=== PATIENT | female | born 1955 | race Caucasian/White ===

== ENCOUNTER 2018-05-18 08:39 | Inpatient (IN) | payer OTHER ==
[~2018-05-18] VITALS: Ht 157.5 cm; Wt 68.4 kg
[2018-05-18 08:40] VITALS: BP 101/33
--- NOTE | 2018-05-18 09:07 | NUR ---
DIALYSIS NURSE AT THIS TIME, REPORTS THAT THEY NOTED DARK RED BLOOD FROM MOUTH AND THEN PT BEGAN HAVING VOMITING DARK SUBSTANCE, WITH CHUNKS. NURSE REPORTS X1 EPISODE. HEPRAIN BOLUS 1999 TODAY. WEIGHT TODAY FOR DIALYSIS 59.6KG GOT ALL BUT 24 OF DIALYSIS
[2018-05-18 09:33] LABS: ABSOLUTE NEUTROPHILS 6.5 thou/uL (1.4-8.2); BASOPHILS 0.5 % (0.0-2.0); HEMATOCRIT 37.6 % (37.0-47.0); HEMOGLOBIN 12.3 gm/dL (12.0-15.0); LYMPHOCYTES 7.4 % (24.0-44.0); MCH 30.6 pg (26.0-34.0); MCHC 32.8 g/dL (28.0-37.0); MCV 93.2 fL (80.0-100.0); MONOCYTES 6.2 % (1.0-8.0); PLATELET COUNT 245 thou/uL (150-400); POLYS 83.9 % (36.0-66.0); RBC 4.03 mil/uL (4.20-5.00); RDW 15.6 % (10.5-14.5); WBC 7.7 thou/uL (4.0-11.0)
--- NOTE | 2018-05-18 09:40 | EKG ---
[facility] [place] [address] ELECTROCARDIOGRAM REPORT Name: JOSEE VAZQUEZ Room #: GAMAL Thakur#: [id number] Admission: 05/18/18 Attend Phys: Discharge: Date of : 51 Report #: [id number] THIS REPORT FOR: //name// [facility] ED Test Date: 2018-05-18 Test Time: 09:29:24 Pat Name: JOSEE VAZQUEZ Department: Room: Gender: F Soccer Referee: SILAS : 1955 Requested By: Robinson Hayes Order Number: [id number] MD: Danie Faulkner Measurements Intervals [place] Rate: 79 P: 38 DC: 166 QRS: 5 QRSD: 103 T: 184 QT: 379 QTc: 435 Interpretive Statements Sinus rhythm Borderline left atrial enlargement Early transition LVH with secondary repol abnrm No previous ECG available for comparison Electronically Signed On 05-18-2018 9:40:17 SECURITY PUBLIC SAFETY OFFICER by Danie Faulkner [email or web address] <ELECTRONICALLY SIGNED> By: Danie Faulkner MD 05/18/18 0940 0929 09 Danie Faulkner MD /BINU
[2018-05-18 09:42] LABS: ANION GAP 5 mmol/L (7-16); BUN 25 mg/dL (7-18); CALCIUM 10.4 mg/dL (8.5-10.1); CHLORIDE 96 mmol/L (98-107); CO2 29 mmol/L (21-32); CREATININE 2.3 mg/dL (0.6-1.0); GLUCOSE 208 mg/dL (74-106); SODIUM 130 mmol/L (136-145)
[2018-05-18 09:44] LABS: APTT 28.1 Seconds (24.5-32.8); PROTIME 10.9 Seconds (9.3-11.4)
[2018-05-18 09:47] LABS: POTASSIUM 2.9 mmol/L (3.5-5.1)
[2018-05-18 09:51] LABS: ALBUMIN 2.7 g/dL (3.4-5.0); LIPASE 686 U/L (73-393); SGOT 14 U/L (15-37); SGPT 8 U/L (30-65); TOTAL BILIRUBIN 0.6 mg/dL (<0.1-1.0); TOTAL PROTEIN 8.6 g/dL (6.4-8.2); TROPONIN-I <0.06 ng/mL (<0.06)
[2018-05-18] MEDS ORDERED: CEREFOLIN NAC1 EAC1 PO (10:03)
[2018-05-18] MEDS ORDERED: CATAPRES0.2 M1 PO (10:04)
[2018-05-18] MEDS ORDERED: MARINOL 2.5 MG2.5 M1 PO (10:05)
[2018-05-18] MEDS ORDERED: NEURONTIN 300300 M1 PO (10:06)
[2018-05-18] MEDS ORDERED: PEPCID20 MG PO (10:06)
[2018-05-18] MEDS ORDERED: MELATONIN3 MG PO (10:07)
[2018-05-18] MEDS ORDERED: ISOSORBIDE MONO20 MG PO (10:07)
[2018-05-18] MEDS ORDERED: HUMALOG100 UNIT/1 SUBQ (10:07)
[2018-05-18] MEDS ORDERED: VITAMINC500 PO (10:09)
[2018-05-18] MEDS ORDERED: ASPIRIN81 M2 PO (10:09)
[2018-05-18] MEDS ORDERED: TYLENOL325 MG PO (10:09)
[2018-05-18] MEDS ORDERED: RENVELA800 MG PO (10:10)
[2018-05-18] MEDS ORDERED: ZINC SULFATE 2220 MG PO (10:10)
[2018-05-18 10:45] VITALS: BP 176/64
[2018-05-18 10:47] VITALS: BP 176/64
[2018-05-18 10:48] LABS: URINE BILIRUBIN NEGATIVE (Negative); URINE BLOOD 3+ (Negative); URINE CLARITY CLOUDY; URINE COLOR BROWN; URINE GLUCOSE-RANDOM* NEGATIVE (Negative); URINE KETONES NEGATIVE (Negative); URINE LEUKOCYTES-REFLEX 2+ (Negative); URINE NITRITE-REFLEX NEGATIVE (Negative); URINE PROTEIN (DIPSTICK) 2+ (Negative); URINE SPECIFIC GRAVITY 1.025 (1.005-1.035); URINE UROBILINOGEN 0.2 E.U./dl (0.2-1.0)
[2018-05-18 10:56] LABS: CASTS None Seen /LPF (None Seen); SQUAMOUS 0-3 Few /LPF (0-3)
[2018-05-18 10:57] LABS: MUCUS 0-3 Light strn/LPF (None Seen)
[2018-05-18 10:58] LABS: BACTERIA-REFLEX >30 Many /HPF (None Seen); CRYSTALS None Seen /LPF (None Seen); URINE RBC 0-2 Rare /HPF (0-2); URINE WBC-REFLEX >25 Many /HPF (0-5)
[2018-05-18 13:45] VITALS: BP 153/84
--- NOTE | 2018-05-18 13:46 | NUR ---
[age] YEAR OLD FEMALE ADMITTED TO CCU ROOM 201. PT WAS BROUGHT INTO THE ER PER MAST FROM DIALYSIS DUE TO HAVING COFFE GROUND EMESIS DURING THE LAST TWENTY FIVE MIN. OF TREATMENT. PT THEN TAKEN TO GI FOR PROCEDURE(SEE CHART) PT ALERT TO SELF ONLY VERY CONFUSED, AND NOT AWARE OF ANY MEDICAL HX. VSS, 98%RA, SR ON TELE PACE MAKER RIGHT UPPER CHEST NOTED. PROTONIX INFUSING PER ORDER. WOUNDS TO BUTOCK AND LEFT HEEL DRESSED AND PICTURES TAKEN. PT DENIES PAIN/N/V/SOA. PT TOLERATES CLEAR LIQUIDS WELL. WILL CONTINUE TO MONITOR.
[2018-05-18 14:07] LABS: HEMATOCRIT 35.7 % (37.0-47.0); HEMOGLOBIN 11.8 gm/dL (12.0-15.0)
[2018-05-18] MEDS ORDERED: LIPITOR10 MG PO (15:08)
[2018-05-18] MEDS ORDERED: COREG6.25 MG PO (15:08)
[2018-05-18] MEDS ORDERED: B-COMPLEX PLUS1 EACH PO (15:08)
[2018-05-18] MEDS ORDERED: ARANESP100 MCG/0. SUBQ (15:08)
[2018-05-18] MEDS ORDERED: DIPHENHYDR50 MG/1 M1 IV (15:09)
[2018-05-18] MEDS ORDERED: SENSIPAR60 MG PO (15:10)
[2018-05-18] MEDS ORDERED: ZOLOFT50 M1 PO (15:10)
[2018-05-18] MEDS ORDERED: NITROGLYCERIN0.4 MG SUBLING (15:10)
[2018-05-18] MEDS ORDERED: SODIUM THI12.5 GM/50 IV (15:11)
[2018-05-18] MEDS ORDERED: TRAMADOL 50 MG50 MG PO (15:12)
[2018-05-18] MEDS ORDERED: ONDANSETRON HCL4 M2 PO (15:12)
[2018-05-18] MEDS ORDERED: ALBUMIN HUMAN IV (15:13)
[2018-05-18 16:20] VITALS: BP 160/82
[2018-05-18 20:30] VITALS: BP 161/77
[2018-05-18 22:01] LABS: HEMATOCRIT 31.6 % (37.0-47.0); HEMOGLOBIN 10.5 gm/dL (12.0-15.0)
[2018-05-19 00:07] VITALS: BP 132/68
[2018-05-19 04:07] LABS: CALCIUM 9.3 mg/dL (8.5-10.1); CREATININE 2.6 mg/dL (0.6-1.0)
[2018-05-19 04:13] LABS: ALBUMIN 2.1 g/dL (3.4-5.0); MAGNESIUM 1.6 mg/dL (1.8-2.4); TOTAL BILIRUBIN 0.6 mg/dL (<0.1-1.0); TOTAL PROTEIN 6.7 g/dL (6.4-8.2)
[2018-05-19 04:38] LABS: POTASSIUM 4.3 mmol/L (3.5-5.1)
[2018-05-19 04:40] LABS: HEMATOCRIT 30.1 % (37.0-47.0)
[2018-05-19 05:24] VITALS: BP 142/74
--- NOTE | 2018-05-19 05:41 | NUR ---
ASSUMED PT CARE AT 1900. VSS. PT WAS AWAKE AND ORIENTED TO SELF. PT TOLERATED PO PILLS WELL WITH THIN LIQUIDS. SHE SLEPT MOST OF THE NIGHT. SHE DID NOT NEED INSULIN COVERAGE DURING THIS SHIFT. PT IS WEAK, NO BM OR URINE OUTPUT NOTED DURING THIS SHIFT EITHER. Q2 TURNS COMPLETED. BARRIER CREAM ON BOTTOM. PT IS STABLE OTHERWISE, WILL CONTINUE TO MONITOR PER POC.
[2018-05-19 07:25] VITALS: BP 161/81
[2018-05-19 11:10] VITALS: BP 167/81
[2018-05-19 13:59] LABS: HEMATOCRIT 31.4 % (37.0-47.0); HEMOGLOBIN 10.4 gm/dL (12.0-15.0)
[2018-05-19 15:05] VITALS: BP 124/58
--- NOTE | 2018-05-19 18:02 | NUR ---
PT ORIENTED X1-2 AND PLEASANT. TOLERATING PO WELL WITH NO NAUSEA OR VOMITING. STOOD AT EDGE OF BED WITH PHYSICAL THERAPY. TURNED Q2H. WILL CONTINUE TO MONITOR PATIENT.
[2018-05-19 19:39] VITALS: BP 159/77
[2018-05-19 23:24] LABS: HEMATOCRIT 31.2 % (37.0-47.0); HEMOGLOBIN 10.4 gm/dL (12.0-15.0)
[2018-05-20 03:16] VITALS: BP 172/81
--- NOTE | 2018-05-20 05:27 | NUR ---
ASSUME CARE 1900. PT/VITALS STABLE. BP RUNS HIGH/ PT IS DIALYSIS PT . A/O TO PERSON AND PLACE. ANS QUESTIONS APPROPRIATELY. DENIES ANY PAIN. POOR TOLERANCE TO ACTIVITY BUT HELPS TURNING. CONTINUE TO MONITOR HH FOR GI BLEED. GI CONSULTED. PT IS A DIALYSIS PT. LARGE DIARRHEA NOTED X 2. STOOL IS BROWN AND LIQUID. NO BLOOD OR TARRINESS NOTED. WILL CONTINUE TO MONITRO AND FOLLOW WITH POC
[2018-05-20 05:52] LABS: HEMATOCRIT 30.5 % (37.0-47.0); HEMOGLOBIN 10.2 gm/dL (12.0-15.0); MCH 30.5 pg (26.0-34.0); MCHC 33.4 g/dL (28.0-37.0); MCV 91.2 fL (80.0-100.0); RBC 3.35 mil/uL (4.20-5.00); RDW 15.4 % (10.5-14.5); WBC 4.9 thou/uL (4.0-11.0)
[2018-05-20 06:07] LABS: CALCIUM 9.7 mg/dL (8.5-10.1); MAGNESIUM 1.6 mg/dL (1.8-2.4); POTASSIUM 4.3 mmol/L (3.5-5.1)
[2018-05-20 06:08] LABS: CREATININE 3.6 mg/dL (0.6-1.0)
[2018-05-20 07:15] VITALS: BP 166/79
[2018-05-20 11:05] VITALS: BP 153/93
[2018-05-20 15:10] VITALS: BP 161/67
--- NOTE | 2018-05-20 18:17 | NUR ---
ASSUMED CARE OF PT AT 0700. PT ALERT AND ORIENTED TO SELF, FOLLOWS COMMANDS. PT NOT OUT OF BED TODAY. PT ON [id number], AND MEPILEX HEART PLACED ON COCCYX FOR SKIN INTEGRITY. PT HAD NEGATIVE CDIFF RESULTS. PT HAD VITALS WITHIN NORMAL LIMITS EXCEPT BLOOD PRESSURE SLIGHTLY HIGH AND SCHEDULED BLOOD PRESSURE MEDS GIVEN. PT WAS SINUS RHYTHM ON TELEMETRY. IV FLUIDS DISCONTINUED BY DR. HARDING. WILL CONT WITH POC.
[2018-05-20 19:12] VITALS: BP 101/75
[2018-05-21 00:12] VITALS: BP 142/37
[2018-05-21 05:30] VITALS: BP 171/95
[2018-05-21 07:41] VITALS: BP 110/54
--- NOTE | 2018-05-21 08:45 | NUR ---
PT REMAIND ORIENTED TO NAME, AND FOLLOWING SIMPLE COMMANDS, VSS, HR REMAINS ELEVATED PRN CLONIDINE GIVEN AT HS, TURNING Q 2HRS AND PRN, NO C/O PAIN, PLANNING ON DIALYSIS IN AM, WILL CON'T TO MONITOR PER PPOC.
--- NOTE | 2018-05-21 11:04 | NUR ---
WOUND CONSULT; ASSESSMENT OF THE LEFT HEEL IS AN UNSTAGEABLE PRESSURE WOUND, AN OLD RESOLVING HEMATOMA, DRY. THE SACRUM/ BILATERAL BUTTOCKS HAS ESCORIATIONS AND ABRASIONS COSISTAT WITH INC RELATED DERMATITIS. RECOMMENDATIONS; BARRIER CREAM TO BUTTOCKS/ SACRAUM, AND A VERA PUMP. DISCUSSED WITH [place]
[2018-05-21 12:47] VITALS: BP 159/49
--- NOTE | 2018-05-21 13:32 | NUR ---
spoke with patient she resides at [facility]. She dializes at [facility]. Spoke with son plan return once stable. patient to dialize later today. [place] supply planner faxing updated information to [facility]. Sp with son who plans return to [place] at tx.
--- NOTE | 2018-05-21 13:45 | NUR ---
FAXED CLINICAL UPDATE TO [facility]ST[facility] DENISE MS WITH MATTHEW IN ADM. THAT UPDATE FAXED. DCP TO FOLLOW.
[2018-05-21 15:43] VITALS: BP 161/78
--- NOTE | 2018-05-21 19:05 | NUR ---
ASSUMED PATIENT CARE THIS AM. PATIENT LYING IN BED, ALERT TO PERSON. TOLERATING DIET, TRAY SET UP NEEDED. PATIENT STOOD WITH PHYSICAL THERAPY FOR A FEW MINUTES WHILE THIS RN CHANGED PATIENTS BEDDING. BARRIER CREAM APPLIED WITH TURNS. PATIENT WITH DIALYSIS THIS AFTERNOON. NO COMPLAINTS STATED.
[2018-05-21 21:02] VITALS: BP 189/91
[2018-05-22 00:48] VITALS: BP 185/81
--- NOTE | 2018-05-22 02:46 | NUR ---
ASSESSMENT DOCUMENTED.PT BEEN RESTING IN NO ACUTE DISTRESS.HAD DIALYSIS AND WELL TOLERATED.BLOOD PRESSURE ELEVATED,SCHEDULED AND PRN HYPERTENSIVE MEDS GIVEN.PT DENIES ANY DISCOMFORT.FISTULA INTACT,COVERED W/DRESSING.POC IS TO DSICHARGE TODAY TO [facility].WILL CONT TO MONITOR PER POC.
[2018-05-22 03:28] LABS: HEMATOCRIT 32.6 % (37.0-47.0); HEMOGLOBIN 10.6 gm/dL (12.0-15.0); MCHC 32.5 g/dL (28.0-37.0); MCV 92.1 fL (80.0-100.0); RBC 3.54 mil/uL (4.20-5.00); RDW 15.5 % (10.5-14.5); WBC 5.8 thou/uL (4.0-11.0)
[2018-05-22 03:38] LABS: CALCIUM 9.4 mg/dL (8.5-10.1); CREATININE 3.3 mg/dL (0.6-1.0); POTASSIUM 3.9 mmol/L (3.5-5.1)
[2018-05-22 04:30] VITALS: BP 190/81
[2018-05-22 08:01] VITALS: BP 133/42
[2018-05-22 11:09] VITALS: BP 110/55
--- NOTE | 2018-05-22 11:13 | PATH ---
[facility] [place] [address] PATHOLOGY RPT PROCEDURE Name: LYNNETTE VAZQUEZ Room #: 201-P ADM IN M.R.#: [id number] Admission: 05/18/18 Date of : 51 Discharge: Report #: [id number] Path Case #: [id number] [facility] Accession Number: [id number] . 01 Material submitted: . BX GASTRITIS R/O H.PYLORI . 01 Clinical history: . Pre-OP DX: Coffee-ground emesis Post-OP DX: Hiatal hernia, esophagitis, gastritis, please refer to requisition for additional information . 02 Diagnosis: Gastric mucosa, gastritis rule out H. pylori, endoscopic biopsy: - Mild reactive gastropathy. - Negative for intestinal metaplasia or atrophy. - Negative for Helicobacter pylori (properly controlled immunohistochemical stain performed). (IUV:pit 05/21/2018) QTP/05/21/2018 . 02 Electronically signed: . Lindsay Cantu MD, Pathologist NPI- [id number] . 01 Gross description: . Received in formalin labeled "Lynnette Vazquez, BX gastritis, rule out H. pylori," are 5 segments of parks soft tissue measuring 0.9 x 0.8 x 0.2 cm in aggregate dimensions and ranging from 0.2 to 0.4 cm in maximum dimension. The specimen is submitted entirely in cassette A1. (TSD; 05/18/2018) TOB/TOB . 02 Pathologist provided ICD-10: K31.9 . 02 CPT . 983055, U96019 Specimen Comment: A courtesy copy of this report has been sent to Specimen Comment: [phone], , . Specimen Comment: Report sent to ,DR CHAN / DR ALARCON Specimen Comment: A duplicate report has been generated due to demographic updates. Performed at: [address] [facility], [place] [id number] MD Rojelio Hernadez MD Phone: [phone] [address] [address] PATHOLOGY RPT PROCEDURE Name: LYNNETTE VAZQUEZ Room #: 201-P ADM IN M.R.#: [id number] Admission: 05/18/18 Date of : 51 Discharge: Report #: [id number] Path Case #: [id number] Performed at: [address], [place], [place] [id number] MD Lindsay Cantu MD Phone: [phone]
--- NOTE | 2018-05-22 15:21 | NUR ---
ASSUMED PATIENT CARE THIS AM. PATIENT LYING IN BED, ALERT. ROOM AIR. PATIENT HAD ONE SMALL COFFEE GROUND EMESIS THIS AM, ABOUT 50-70ML. PROVIDERS AWARE. MEDICATION GIVEN TO PATIENT. NO COMPLAINTS OF N/V SINCE THIS AM. FALL RISK. BED ALARM IN PLACE. CALL LIGHT WITHIN REACH. PATIENT ABLE TO FEED SELF WITH TRAY SET UP. BED BATH GIVEN THIS AFTERNOON.
[2018-05-22 16:14] VITALS: BP 166/67
[2018-05-22 20:43] VITALS: BP 146/57
[2018-05-23 00:42] VITALS: BP 166/80
--- NOTE | 2018-05-23 03:34 | NUR ---
ASSESSMENT CHARTED.PATIENT FINALLY FELL ASLEEP AROUND 0200 AM. SCHEDULED FOR DIALYSIS AGAIN TODAY. PLAN OF CARE MAY BE GOING HOME TODAY AFTER DIALYSIS.
[2018-05-23 04:15] VITALS: BP 183/90
[2018-05-23 07:43] VITALS: BP 172/77
[2018-05-23 08:10] LABS: HEMATOCRIT 33.8 % (37.0-47.0); HEMOGLOBIN 11.1 gm/dL (12.0-15.0); MCH 30.2 pg (26.0-34.0); MCHC 32.7 g/dL (28.0-37.0); MCV 92.4 fL (80.0-100.0); RBC 3.65 mil/uL (4.20-5.00); RDW 15.8 % (10.5-14.5); WBC 4.9 thou/uL (4.0-11.0)
[2018-05-23 08:21] LABS: CALCIUM 10.1 mg/dL (8.5-10.1); POTASSIUM 4.6 mmol/L (3.5-5.1)
[2018-05-23 08:22] LABS: CREATININE 4.6 mg/dL (0.6-1.0)
[2018-05-23] MEDS ORDERED: KEFLEX500 M1 PO (10:02)
[2018-05-23] MEDS ORDERED: PROTONIX40 M1 PO (10:04)
[2018-05-23 11:17] VITALS: BP 141/67
[2018-05-23 14:50] VITALS: BP 177/88
--- NOTE | 2018-05-23 15:00 | NUR ---
PT. DISCHARGING TODAY TO [facility] FAXED DC ORDERS/SUMMARY TO FACILITY SPOKE WITH MATTHEW IN ADM. SHE RECEIVED ORDERS AND SET UP TRANSPORT VIA VAN FOR [phone]. NOTIFIED SON TRACY OF DISCHARGE AND TIME OF TRANSPORT LEFT [facility] WITH HER OTHER SON CELINA ALSO. UNIT NOTIFIED OF TIME AND CHART COPY PER US. RN TO CALL REPORT TO [phone].
--- NOTE | 2018-05-23 15:58 | NUR ---
arrangements made for dc to [facility] today for wc van at [phone]. Rn approached caset to say dialysis here arranged at 1830. [facility] cannot accept patient at 2000 at night. Cancelled dc.
--- NOTE | 2018-05-23 16:21 | NUR ---
ASSESSMENT CHARTED - MEDS PER JUN - NO CO'S OF PAIN OR NAUSEA - PATRICIA DIET AND FLUIDS. PT TO HAVE DIALYSIS THIS EVEINING ORDERED - PT DISCHARGE PLACED ON HOLD DUE TO LATE DIALYSIS. WOUND CARE COMPLETED - PHOTOS TRAKEN AND PLACED IN CHART, HEEL L CLEANED AND PAINTED WITH BETADINE AND AREA ON BOOTOM AND COCCYX CLEANED AND BARRIED APPLIED. PT HAS BEEN WATCHING TV FOR MOST OF THE DAY - NO CO'S AT THE PRESENT TIME.
[2018-05-23 20:30] VITALS: BP 138/45
--- NOTE | 2018-05-24 01:00 | NUR ---
ASSESSMENT DOCUMENTED.PT COMPLETED DIALYSIS,TOLERATED.VSS.DENIES ANY DISTRESS AT THIS TIME.NSR ON MONITOR.X3 DIARRHEA THIS SHIFT.NO C/O NAUSEA OR ABD DISCOMFORT.POC IS TO DISCHARGE IN THE MORNING.WILL CONT TO MONITOR PER POC.
[2018-05-24 04:52] VITALS: BP 182/82
[2018-05-24 07:30] VITALS: BP 152/62
--- NOTE | 2018-05-24 10:42 | NUR ---
PT. DID NOT DISCHARGE YESTERDAY DUE TO LATE DIALYSIS (1829) SO PT. IS DISCHARGING TODAY TO [facility]. MATTHEW IN ADM. AT [facility] SET UP TRANSPORTATION VIA [facility] VAN FOR [phone]. NOTIFIED SON (CELINA) OF DISCHARGE AND TIME OF TRANSPORT. UNIT NOTIFIED AND CHART COPY PER US. RN TO CALL REPORT TO [phone].
[2018-05-24 11:45] VITALS: BP 163/69
--- NOTE | 2018-05-24 16:57 | NUR ---
ASSESSMENT CHARTED - MEDS PER JUN - ACCUCHECKS COVERED PER SLINDING SCALE. SEEN BY PHYS THERAPY THIS AM. PATRICIA DIET AND FLUIDS. NO CO'S OF PAIN OR NAUSEA. PRAFO BOOTS INSTITU - HEEL DRESSING CHANGED - BARRIER APPLIED TO BOTTOM. PT BACK TO [facility] TODAY. -=- REPORT CALLED TO DAO TORRES TRANSFERED VIA CART- NO CO'S AT TIME OF D/C.
--- NOTE | 2018-05-25 09:18 | HC ---
[facility] [place] [place] [address] CONSULTATION Name: TAYLORJOSEE Room #: 201-P [facility] IN M.Teri.#: [id number] Admission: 05/18/18 Attend Phys: Bradley Clayton MD Discharge: 05/24/18 Date of : 51 Report #: [id number] THIS REPORT FOR: //name// CC: Mariana Merrybhavesh Bradley Clayton DATE OF SERVICE: 05/18/2018 ATTENDING PHYSICIAN: Dr. Clayton. REASON FOR CONSULTATION: End-stage renal disease. HISTORY OF PRESENT ILLNESS: A 63-year-old patient apparently a longstanding dialysis patient recently admitted at [facility], had some coffee-ground emesis at the end of her dialysis today. PAST MEDICAL HISTORY: She has end-stage renal disease. She is somewhat demented, extremely poor historian and I am not getting a lot of good history from her and there is essentially nothing in the charts. HOME MEDICATIONS: Reported medications include Catapres patch p.r.n. 0.2, Marinol 2.5 mg b.i.d., Pepcid 20 mg at bedtime, Neurontin 300 mg t.i.d., insulin, isosorbide mononitrate 20 mg b.i.d., ascorbic acid 500 mg daily, aspirin 81 mg daily, Renvela 800 mg t.i.d. with meals, zinc 50 mg daily. SOCIAL HISTORY: Denies cigarettes. REVIEW OF SYSTEMS: Difficult to take. She says she is feeling fine, not short winded. She is eating well, not having any abdominal pain. FAMILY HISTORY: Unknown. ALLERGIES: REPORTEDLY TO PENICILLIN. PHYSICAL EXAMINATION: GENERAL: This is a somewhat chronically ill patient, looking older than her stated age. SKIN: She has got lots of erythema with some breakdown and bandages in her back and sacral area. SKELETAL: Well-developed, well-nourished, no amputations. HEENT: Extraocular movements are full. Vision is intact. Hearing appears intact. Mucous membranes are dry. NECK: Veins are flat. CHEST: Clear to auscultation. HEART: Regular. ABDOMEN: There is an apparent pacemaker in the right upper chest. [facility] [address] [place] [address] CONSULTATION Name: JOSEE VAZQUEZ Room #: 201-P DIS IN M.R.#: [id number] Admission: 05/18/18 Attend Phys: Bradley Clayton MD Discharge: 05/24/18 Date of : 51 Report #: [id number] ABDOMEN: Soft, nontender. EXTREMITIES: Showing no edema. There are dressings and boots on both lower extremities. LABORATORY DATA: This is immediately post-dialysis, the potassium was 2.9, calcium 10.4. LFTs were okay. ASSESSMENT: 1. End-stage renal disease. We will follow closely for need for dialysis. She does have a left arm AV fistula, seems to be okay. 2. Coffee-ground emesis. 3. History of diabetes mellitus. 4. Back wounds. 5. Apparent cognitive debility. <ELECTRONICALLY SIGNED> By: Mina Okeefe MD 05/25/18 0918 1346 2353 Mina Okeefe MD /nt
--- NOTE | 2018-05-25 10:09 | P ---
[facility] [place] [address] [address] [place] [address] PROCEDURE REPORT Name: TAYLORJOSEE Room #: 201-P [facility] IN M.R.#: [id number] Admission: 05/18/18 Attend Phys: Bradley Clayton MD Discharge: 05/24/18 Date of : 51 Report #: [id number] THIS REPORT FOR: //name// CC: Mariana Clayton MD DATE OF SERVICE: 05/18/2018 PROCEDURE PERFORMED: Upper endoscopy with biopsies. HISTORY OF PRESENT ILLNESS: The patient is a 63-year-old female with a history of end-stage renal disease, on hemodialysis, who was on dialysis earlier this morning and had an episode of coffee-ground emesis. No previous history of GI bleed, per the patient. She is a fairly poor historian, however, and she is not oriented to time or place. She denies any abdominal pain. However, her hemoglobin is 12 range. There has been no history of melena reportedly. She denies any dysphagia. She has been taking NSAIDs. She was on Pepcid as well. Plan is for upper endoscopy for further evaluation. DESCRIPTION OF PROCEDURE: The procedure was performed as an emergent procedure. Unable to obtain consent from the patient due to her mental status and unable to obtain consent from any family members. Sedation was given using propofol per anesthesia. Next, using a standard Olympus upper endoscope, the scope was placed in the patient's mouth and advanced under direct vision through the esophagus, stomach and into the second portion of the duodenum. The upper and mid esophagus was normal in appearance. In the distal esophagus, grade B erosive esophagitis was noted. There was a small amount of old blood in this area, but no active bleeding. Upon entering the stomach old food and old fluid was noted, suggesting the possibility of gastroparesis. A medium-sized hiatal hernia with several ulcerations, clean white based, consistent with Dariusz ulcers, were noted. Again, no evidence of bleeding. Some old blood was noted within the stomach, however. There was a diffuse mild gastritis in the body and antrum. Biopsies were obtained to rule out H. pylori. The pylorus was normal and patent. The duodenal bulb, first and second portion, were all normal. The scope was then withdrawn and the procedure terminated. The patient tolerated the procedure well. IMPRESSION: 1. Grade B erosive esophagitis. 2. Dariusz ulcerations within hiatal hernia. 3. Food and fluid within the stomach, suggesting possible gastroparesis. 4. Otherwise, normal upper endoscopy. RECOMMENDATIONS: I suspect the recent coffee-ground emesis from gastric ulcers or esophagitis would recommend holding the NSAIDs, b.i.d. PPI therapy for the [address] [address] PROCEDURE REPORT Name: JOSEE VAZQUEZ Room #: 201-P DIS IN M.R.#: [id number] Admission: 05/18/18 Attend Phys: Bradley Clayton MD Discharge: 05/24/18 Date of : 51 Report #: [id number] next 2 weeks with Carafate and then long-term PPI on a daily basis instead of Pepcid. Thank you for allowing me to participate in her care. <ELECTRONICALLY SIGNED> By: Joseph Pelaez MD 05/25/18 1009 1210 2233 Joseph Pelaez MD /nt
== END 2018-05-24 17:18 | DRG 380 ==
LOC: ER 08:39 → 2N 10:29 → EROBS 10:29 → 2N 12:23
PROVIDERS: Emergency Medicine; Internal Medicine; Nurse Practitioner; ADMIT Internal Medicine
PROC: 0DB68ZX Excision of Stomach, Via Natural or Artificial Opening Endoscopic, Diagnostic (ICD-10-PCS; 2018-05-18)
PROC: 5A1D70Z Performance of Urinary Filtration, Intermittent, Less than 6 Hours Per Day (ICD-10-PCS; principal; 2018-05-19)
PROC: 5A1D70Z Performance of Urinary Filtration, Intermittent, Less than 6 Hours Per Day (ICD-10-PCS; 2018-05-22)
DX: K22.11 Ulcer of esophagus with bleeding (principal); N18.6 End stage renal disease; K85.90 Acute pancreatitis without necrosis or infection, unspecified; E46 Unspecified protein-calorie malnutrition; N25.81 Secondary hyperparathyroidism of renal origin; N39.0 Urinary tract infection, site not specified; G93.40 Encephalopathy, unspecified; I13.2 Hypertensive heart and chronic kidney disease with heart failure and with stage 5 chronic kidney disease, or end stage renal disease; K25.4 Chronic or unspecified gastric ulcer with hemorrhage; K29.71 Gastritis, unspecified, with bleeding; Z88.0 Allergy status to penicillin; E11.22 Type 2 diabetes mellitus with diabetic chronic kidney disease; E11.65 Type 2 diabetes mellitus with hyperglycemia; K21.9 Gastro-esophageal reflux disease without esophagitis; E78.5 Hyperlipidemia, unspecified; G47.00 Insomnia, unspecified; E87.6 Hypokalemia; I50.9 Heart failure, unspecified; K44.9 Diaphragmatic hernia without obstruction or gangrene; D50.0 Iron deficiency anemia secondary to blood loss (chronic); D63.8 Anemia in other chronic diseases classified elsewhere; F03.90 Unspecified dementia, unspecified severity, without behavioral disturbance, psychotic disturbance, mood disturbance, and anxiety; R41.0 Disorientation, unspecified; Z86.73 Personal history of transient ischemic attack (TIA), and cerebral infarction without residual deficits; Z79.1 Long term (current) use of non-steroidal anti-inflammatories (NSAID); Z79.899 Other long term (current) drug therapy; Z68.27 Body mass index [BMI] 27.0-27.9, adult; Z95.0 Presence of cardiac pacemaker
CPT/HCPCS: 10081; 32100; 62110; 62900

== ENCOUNTER 2018-06-28 11:35 | Emergency (ER) | payer OTHER ==
[~2018-06-28] VITALS: Ht 154.9 cm; Wt 63.5 kg
[~2018-06-28 11:35] MED LIST: ALBUMIN HUMAN IV; ARANESP100 MCG/0. SUBQ; ASPIRIN81 M2 PO; B-COMPLEX PLUS1 EACH PO; CATAPRES0.2 M1 PO; CEREFOLIN NAC1 EAC1 PO; COREG6.25 MG PO; DIPHENHYDR50 MG/1 M1 IV; HUMALOG100 UNIT/1 SUBQ; ISOSORBIDE MONO20 MG PO; KEFLEX500 M1 PO; LIPITOR10 MG PO; MARINOL 2.5 MG2.5 M1 PO; MELATONIN3 MG PO; NEURONTIN 300300 M1 PO; NITROGLYCERIN0.4 MG SUBLING; ONDANSETRON HCL4 M2 PO; PEPCID20 MG PO; PROTONIX40 M1 PO; RENVELA800 MG PO; SENSIPAR60 MG PO; SODIUM THI12.5 GM/50 IV; TRAMADOL 50 MG50 MG PO; TYLENOL325 MG PO; VITAMINC500 PO; ZINC SULFATE 2220 MG PO; ZOLOFT50 M1 PO
[2018-06-28] MEDS ORDERED: VITAMIN D3400 UNIT PO (11:54)
[2018-06-28 12:04] LABS: ABSOLUTE NEUTROPHILS 2.7 thou/uL (1.4-8.2); BASOPHILS 1.1 % (0.0-2.0); EOSINOPHILS 7.6 % (0.0-3.0); HEMATOCRIT 35.3 % (37.0-47.0); HEMOGLOBIN 11.8 gm/dL (12.0-15.0); LYMPHOCYTES 23.3 % (24.0-44.0); MCH 31.7 pg (26.0-34.0); MCHC 33.4 g/dL (28.0-37.0); MCV 95.1 fL (80.0-100.0); MONOCYTES 9.1 % (1.0-8.0); PLATELET COUNT 255 thou/uL (150-400); POLYS 58.9 % (36.0-66.0); RBC 3.71 mil/uL (4.20-5.00); RDW 16.9 % (10.5-14.5); WBC 4.6 thou/uL (4.0-11.0)
[2018-06-28 12:07] LABS: CALCIUM 9.3 mg/dL (8.5-10.1); POTASSIUM 4.7 mmol/L (3.5-5.1)
[2018-06-28 12:13] LABS: ALBUMIN 2.7 g/dL (3.4-5.0); TOTAL BILIRUBIN 0.7 mg/dL (<0.1-1.0); TOTAL PROTEIN 8.6 g/dL (6.4-8.2)
[2018-06-28 13:52] VITALS: BP 162/68
--- NOTE | 2018-06-28 18:06 | EKG ---
[facility] [place] [address] ELECTROCARDIOGRAM REPORT Name: JOSEE VAZQUEZ Room #: [facility] Thakur#: [id number] ������������������ Admission: 06/28/18 ������������������ Attend Phys: Discharge: 06/28/18 ������������������ Date of : 51 Report #: [id number] ����������������������������������������������������������������� [id number] THIS REPORT FOR: //name// [facility] ED Test Date: 2018-06-28 Test Time: 11:43:06 Pat Name: JOSEE VAZQUEZ Department: Room: Gender: F Helminthologist: GENIE : 1955 Requested By: Brittany Eckert Order Number: [id number] MD: Kraig Bourgeois Measurements Intervals [place] Rate: 65 P: 29 LA: 165 QRS: -2 QRSD: 90 T: 159 QT: 418 QTc: 435 Interpretive Statements Sinus rhythm Abnormal R-wave progression, early transition Abnormal T, consider ischemia, lateral leads Baseline wander in lead(s) II,III,aVR,aVL,aVF Compared to ECG 05/18/2018 09:29:24 Nonspecific change in the ST and T-wave segments Electronically Signed On 06-28-2018 18:05:54 CDT by Kraig Bourgeois [email or web address] ��������������������������������������������� <ELECTRONICALLY SIGNED> ���������������������������������������� By: Kraig Bourgeois MD, [facility] ��������������������������������������������� 06/28/18 1805 1143 1143 Kraig Bourgeois MD, [facility] /EPI
== END 2018-06-28 14:11 ==
LOC: ER 11:35
PROVIDERS: Nurse Practitioner Family
DX: L98.421 Non-pressure chronic ulcer of back limited to breakdown of skin (principal); E11.9 Type 2 diabetes mellitus without complications; E78.5 Hyperlipidemia, unspecified; I10 Essential (primary) hypertension; E05.90 Thyrotoxicosis, unspecified without thyrotoxic crisis or storm; Z86.2 Personal history of diseases of the blood and blood-forming organs and certain disorders involving the immune mechanism; Z99.2 Dependence on renal dialysis; Z88.0 Allergy status to penicillin; Z88.8 Allergy status to other drugs, medicaments and biological substances